=== PATIENT | male | born 1970 | race African-American/Black ===

== ENCOUNTER 2021-07-10 12:23 | Inpatient (IN) | payer OTHER, SELFPAY ==
[2021-07-10 12:23] VITALS: BMI 26.3
[2021-07-10 14:43] VITALS: BP 157/78; PULSE 84; RESP 20; TEMP 36.9; O2SAT 98
[2021-07-10 20:14] VITALS: BP 115/70; PULSE 60; RESP 16; TEMP 37; O2SAT 97
[2021-07-11 06:00] VITALS: BP 118/60; PULSE 58; RESP 16; TEMP 36.8; O2SAT 98
[2021-07-11] MEDS: carvedilol 6.25 mg Tablet PO ×2 (08:40→17:25)
[2021-07-11] MEDS: aspirin 81 mg EC Tablet PO (08:40)
[2021-07-11] MEDS: clopidogrel 75 mg Tablet PO (08:40)
[2021-07-11] MEDS: lisinopril 20 mg Tablet 40 MG PO (08:41)
--- NOTE | 2021-07-11 10:36 | P.NPUHP_ITS ---
Providers/Chief Complaint Admitting Physician: Harvey Fritz MD HPI NPU History of Present Illness Aston Kaminski is a 50 year old male who is admitted through an outside emergency department with the following report: Patient is a 50-year-old male with a past history of coronary artery disease, depression, hypertension, hyperlipidemia presents to the emergency department with suicidal ideation.? Patient was here earlier today for chest pain and was cleared for discharge however upon leaving he states that he has been having perseverating suicidal thoughts.? He states that he is concerned that if he goes home he will do something to hurt himself.? He has been off his antidepressants recently due to not having a refill.? He recently moved to [place] from [place].? He states that he has multiple suicide attempts in the past by overdose on his hypertension medications and drinking bleach.? He no longer is having any chest pain.? He states that he has otherwise been well.? He denies fever, chills, sweats, cough, sore throat, shortness of breath, nausea, vomiting, abdominal pain, diarrhea and dysuria. Affidavit patient presents with reports of suicidal ideation.? He states he does not feel safe at home at this time due to this.? He states he has been off his antidepressants due to running out.? He has attempted suicide multiple times in the past including drinking bleach and prescription overdose.? He does not have a specific plan at this time. He was admitted to the neuropsychiatry unit for definitive treatment of these issues. He said that he has been dealing with depression and suicidal ideation on and off for the last 14 years. 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 He says that he has not been using any cocaine for the last year. He was hospitalized last year and started on Zoloft 50 mg daily which he took in the morning. He said that helped significantly and he took it for about 6 months. He says it was very beneficial for his depression. He said he started working within 1 or 2 days. He said that he stopped seeing that psychiatrist and stopped taking the Zoloft. He has been more depressed since then. 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 Yesterday he took a hit off of another person's marijuana blunt and immediately flipped out. He says he thinks there must have been something in it. His urine was positive for cannabis and cocaine. He says that usually takes about 3 days for something like that to get out of his system and he expects that he will be much better tomorrow. He requested starting back on Zoloft. He is not sure what dose but does not think that it was very much. PAST PSYCHIATRIC HISTORY As above SOCIAL HISTORY As above Meds NPU Home Medications Medication Instructions Recorded Confirmed Last Taken Type aspirin 81 mg tablet,delayed 81 mg PO DAILY 07/10/21 07/10/21 Unknown History release carvedilol 6.25 mg tablet (Coreg) 6.25 mg PO BID 07/10/21 07/10/21 Unknown History clopidogrel 75 mg tablet 75 mg PO DAILY 07/10/21 07/10/21 Unknown History lisinopril 40 mg tablet 40 mg PO DAILY 07/10/21 07/10/21 Unknown History lovastatin 40 mg tablet 80 mg PO DAILY 07/10/21 07/10/21 Unknown History Allergies Allergy/AdvReac Type Severity Reaction Status Date / Time No Known Allergies Allergy Verified 07/10/21 12:56 Mental Status Exam MSE Comments: This is a mildly overweight 50-year old -[place] male who appears approximately his stated age and is in no acute distress. He is in bed and did not sit up to talk to me. He did uncover his head. Eye contact was poor. He is dressed in hospital scrubs. psychomotor activity is normal to mildly decreased Speech is at a regular rate and rhythm, normal volume, good articulation, not pressured. Alert, oriented X3 Attention and concentration appear to be normal. Memory is intact Mood is depressed. Affect is mildly dysphoric. Thought process is logical and goal-directed. Thought content: Denies auditory and visual hallucinations. No delusions or paranoia are noted. He reported suicidal ideation but denies in the hospital and no homicidal ideation. Fund of knowledge is average. Insight and judgment appear to be fairly good. Impulse control is probably fairly good when not on drugs Vitals/I&O/Wt Last Vital Signs Temp 98.2 F 07/11/21 06:00 Pulse 58 L 04/17/22 06:00 Resp 16 07/11/21 06:00 BP 118/60 07/11/21 06:00 Pulse Ox 98 07/11/21 06:00 Weight last 48 hrs Weight 92.986 kg A&P Assessment and plan (1) Major depressive disorder: Status: Acute (2) Cocaine abuse: Status: Acute (3) Suicidal ideation: Status: Acute Plan This is a 50-year-old black male who reports about 15 years of on and off depression but a previous good response to Zoloft. Plan: 1. We will restart Zoloft 50 mg and standard as needed medications. 2. Continue every 15 minute checks for safety. 3. Encourage individual, group and milieu therapies. 4. Encourage sober living treatment after discharge at the highest level of care to which he is willing to commit. 5. We will monitor for safety for himself in the community prior to discharge. Involuntary Hold Information 96 Hour Hold: 96 Hour Involuntary Admission: No Attestations NPU Medical Necessity Statement*: Inpatient hospitalization is medically necessary and the clinically appropriate intervention at this time. We will initiate medications and make changes as indicated. He will be in the hospital for over 2 midnights. Likely length of stay 4-6 days Coding Level of Care Code Acute [employer] for [facility] Diagnoses Major depressive disorder F32.9 Cocaine abuse F14.10 Suicidal ideation R45.851
[2021-07-11 14:00] VITALS: BP 117/66; PULSE 67; RESP 18; TEMP 36.6; O2SAT 97
[2021-07-11] MEDS: sertraline 50 mg Tablet PO (14:37)
[2021-07-11] MEDS: nicotine 2 mg Gum BUCCAL (21:25)
[2021-07-11 22:00] VITALS: BP 159/89; PULSE 63; RESP 16; TEMP 37.3; O2SAT 96
[2021-07-12 06:00] VITALS: BP 135/86; PULSE 69; RESP 16; TEMP 36.8; O2SAT 95
[2021-07-12] MEDS: clopidogrel 75 mg Tablet PO (09:45)
[2021-07-12] MEDS: aspirin 81 mg EC Tablet PO (09:45)
[2021-07-12] MEDS: sertraline 50 mg Tablet PO (09:46)
[2021-07-12] MEDS: nicotine 2 mg Gum BUCCAL ×2 (09:46→14:47)
[2021-07-12] MEDS: lisinopril 20 mg Tablet 40 MG PO (09:46)
[2021-07-12] MEDS: carvedilol 6.25 mg Tablet PO ×2 (09:46→17:33)
--- NOTE | 2021-07-12 11:51 | P.NPUPN_ITS ---
Subjective NPU Subjective: He says he is doing better. He still feels like the cocaine is in his system. He complains of a lot of back pain. He says he was up most of the day yesterday. He has been in bed when I have seen him. He was encouraged to be out of bed as much as possible. He says that he takes ibuprofen 600 mg as needed for back pain and that is helpful. He would like to take that now. Mental Status Exam MSE Comments: This is a mildly overweight 50-year old -[place] male who appears approximately his stated age and is in no acute distress. He is in bed and did not sit up to talk to me. He did uncover his head. Eye contact was better. He is dressed in hospital scrubs. psychomotor activity is normal to mildly decreased Speech is at a regular rate and rhythm, normal volume, good articulation, not pressured. Alert, oriented X3 Attention and concentration appear to be normal. Memory is intact Mood is depressed. Affect is mildly dysphoric. Thought process is logical and goal-directed. Thought content: Denies auditory and visual hallucinations. No delusions or paranoia are noted. He reported suicidal ideation but denies in the hospital and no homicidal ideation. Fund of knowledge is average. Insight and judgment appear to be fairly good. Impulse control is probably fairly good when not on drugs Cognition: Patient Appearance: Appropriate Ability to Follow Directions: Good Patient Orientation (long list): Person, Place, Name, Age and Birthday Comprehension Ability: Understands Concepts Hallucination Type: None Delusion Description: Not Present Thought Process: Circumstantial Affect: Affect Description: Appropriate and Calm Behavior: Patient Behavior: Appropriate and Cooperative Speech Pattern: Appropriate and Clear Vitals/I&O/Wt Last Vital Signs Temp 98.3 F 07/12/21 06:00 Pulse 69 07/12/21 06:00 Resp 16 07/12/21 06:00 BP 135/86 07/12/21 06:00 Pulse Ox 95 07/12/21 06:00 Weight last 48 hrs Weight 92.986 kg A&P Assessment and plan (1) Major depressive disorder: Status: Acute (2) Cocaine abuse: Status: Acute (3) Suicidal ideation: Status: Acute Plan This is a 50-year-old black male who reports about 15 years of on and off depres trever but a previous good response to Zoloft. Plan: 1. We will restart Zoloft 50 mg and standard as needed medications. 2. Continue every 15 minute checks for safety. 3. Encourage individual, group and milieu therapies. 4. Encourage sober living treatment after discharge at the highest level of care to which he is willing to commit. 5. We will monitor for safety for himself in the community prior to discharge. Involuntary Hold Information 96 Hour Hold: 96 Hour Involuntary Admission: No Attestations NPU Medical Necessity Statement*: Inpatient hospitalization is medically necessary and the clinically appropriate intervention at this time. We will initiate medications and make changes as indicated. Coding Level of Care Code Acute Non Destructive Testing Supervisor for [facility] Diagnoses Major depressive disorder F32.9 Cocaine abuse F14.10 Suicidal ideation R47.254
[2021-07-12 14:00] VITALS: BP 142/97; PULSE 62; RESP 18; TEMP 36.8; O2SAT 95
[2021-07-12] MEDS: ibuprofen 600 mg Tablet PO (17:33)
[2021-07-12 20:14] VITALS: BP 137/90; PULSE 59; RESP 17; TEMP 36.8; O2SAT 99
[2021-07-12] MEDS: trazodone 50 mg Tablet PO (21:13)
[2021-07-13 06:00] VITALS: BP 133/85; PULSE 72; RESP 16; TEMP 37.1; O2SAT 98
[2021-07-13] MEDS: lisinopril 20 mg Tablet 40 MG PO (09:49)
[2021-07-13] MEDS: aspirin 81 mg EC Tablet PO (09:50)
[2021-07-13] MEDS: clopidogrel 75 mg Tablet PO (09:50)
[2021-07-13] MEDS: sertraline 50 mg Tablet PO (09:50)
[2021-07-13] MEDS: carvedilol 6.25 mg Tablet PO (09:50)
--- NOTE | 2021-07-13 09:54 | W.PM.NPUDCS ---
Diagnoses at Discharge Discharge Diagnosis (1) Major depressive disorder: Status: Acute (2) Cocaine abuse: Status: Acute (3) Suicidal ideation: Status: Acute Reason for Visit Reason for Visit: Brief History: History of Present Illness Aston Kaminski is a 50 year old male who is admitted through an outside emergency department with the following report: Patient is a 50-year-old male with a past history of coronary artery disease, depression, hypertension, hyperlipidemia presents to the emergency department with suicidal ideation.? Patient was here earlier today for chest pain and was cleared for discharge however upon leaving he states that he has been having perseverating suicidal thoughts.? He states that he is concerned that if he goes home he will do something to hurt himself.? He has been off his antidepressants recently due to not having a refill.? He recently moved to [place] from [place].? He states that he has multiple suicide attempts in the past by overdose on his hypertension medications and drinking bleach.? He no longer is having any chest pain.? He states that he has otherwise been well.? He denies fever, chills, sweats, cough, sore throat, shortness of breath, nausea, vomiting, abdominal pain, diarrhea and dysuria. Affidavit patient presents with reports of suicidal ideation.? He states he does not feel safe at home at this time due to this.? He states he has been off his antidepressants due to running out.? He has attempted suicide multiple times in the past including drinking bleach and prescription overdose.? He does not have a specific plan at this time. He was admitted to the neuropsychiatry unit for definitive treatment of these issues.? He said that he has been dealing with depression and suicidal ideation on and off for the last 14 years.? 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 He says that he has not been using any cocaine for the last year.? He was hospitalized last year and started on Zoloft 50 mg daily which he took in the morning.? He said that helped significantly and he took it for about 6 months.? He says it was very beneficial for his depression.? He said he started working within 1 or 2 days.? He said that he stopped seeing that psychiatrist and stopped taking the Zoloft.? He has been more depressed since then.? 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 Yesterday he took a hit off of another person's marijuana blunt and immediately flipped out.? He says he thinks there must have been something in it.? His urine was positive for cannabis and cocaine.? He says that usually takes about 3 days for something like that to get out of his system and he expects that he will be much better tomorrow.? He requested starting back on Zoloft.? He is not sure what dose but does not think that it was very much. Hospital Course Hospital Course He slowly acclimated to the individual, group and milieu therapies provided. He was started on Zoloft 50 mg which he had said had helped him previously. He tolerated these doses and showed steady improvement during his stay. He was able to contract for safety outside hospital prior to discharge. During the hospitalization, patient had routine laboratory studies which were within normal limits except for few outliers. Additionally there was a general medical evaluation which was also within normal limits and revealed no new acute processes. Discharge Summary: At the time of discharge, lethality was denied and psychosis was resolving. Mood and anxiety were well managed. Patient endorsed a plan to follow-up with the aftercare recommendations of the treatment team. Patient was evaluated and deemed to be absent credible lethality, and had achieved the maximum benefit from an inpatient hospitalization, so was discharged. Involuntary Hold Information 96 Hour Hold: 96 Hour Involuntary Admission: No Mental Status Exam MSE Comments: This is a mildly overweight 50-year old -[place] male who appears approximately his stated age and is in no acute distress. He is in bed and did not sit up to talk to me. He did uncover his head. Eye contact was better. He is dressed in hospital scrubs. psychomotor activity is normal to mildly decreased Speech is at a regular rate and rhythm, normal volume, good articulation, not pressured. Alert, oriented X3 Attention and concentration appear to be normal. Memory is intact Mood is good. Affect is mildly dysphoric. Thought process is logical and goal-directed. Thought content: Denies auditory and visual hallucinations. No delusions or paranoia are noted. He reported suicidal ideation but denies in the hospital and no homicidal ideation. Fund of knowledge is average. Insight and judgment appear to be fairly good. Impulse control is probably fairly good when not on drugs Cognition: Patient Appearance: Appropriate Ability to Follow Directions: Good Patient Orientation (long list): Person, Place, Name, Age, Birthday, Month and Year Comprehension Ability: Understands Concepts Hallucination Type: None Delusion Description: Not Present Thought Process: Appropriate Affect: Affect Description: Appropriate and Calm Behavior: Patient Behavior: Appropriate and Cooperative Speech Pattern: Appropriate and Clear Discharge Data Vitals: Last Vital Signs Temp 98.8 F 07/13/21 06:00 Pulse 72 07/13/21 06:00 Resp 16 07/13/21 06:00 BP 133/85 07/13/21 06:00 Pulse Ox 98 07/13/21 06:00 Discharge Plan Discharge Patient Disposition: Home Condition: Stable Prescriptions: New sertraline 50 mg Tablet 50 mg PO DAILY 30 Days Qty: 30 1RF Continued clopidogrel 75 mg tablet 75 mg PO DAILY 0RF lisinopril 40 mg Tablet 40 mg PO DAILY 0RF Coreg 6.25 mg Tablet 6.25 mg PO BID 0RF Rx Instructions: must administer with a meal/food aspirin 81 mg Tablet,Delayed Release (Dr/Ec) 81 mg PO DAILY 0RF lovastatin 40 mg Tablet 80 mg PO DAILY 0RF Discharge Orders: Discharge Order (Routine); Ordered 07/13/21 Ordered By: Harvey Fritz Discharge Diet: Regular Discharge Activity: Resume usual activity Patient Instructions: Opioid Safety Discharge Attestations NPU Time Spent in Discharge Care*: less than 30 min Specific Discharge Activities: Specific discharge activities: educating patient, discussing with pillowcase sewer/social workers/dc planners, documenting/other paperwork and evaluating patient/reviewing data Coding Level of Care Code Acute [facility] DC note Diagnoses Major depressive disorder F32.9 Cocaine abuse F14.10 Suicidal ideation R45.85
[2021-07-13 10:15] VITALS: BP 133/85; PULSE 72; RESP 16; TEMP 37.1; O2SAT 98
== END 2021-07-13 11:33 | disposition home or self-care (01) | DRG 881 ==
PROVIDERS: Admitting Provider Psychiatry & Neurology Psychiatry; Visit Provider Psychiatry & Neurology Psychiatry
DX: F32.9 Major depressive disorder, single episode, unspecified (principal); R45.851 Suicidal ideations; I25.10 Atherosclerotic heart disease of native coronary artery without angina pectoris; I10 Essential (primary) hypertension; E78.5 Hyperlipidemia, unspecified; Z91.51 Personal history of suicidal behavior; Z91.128 Patient's intentional underdosing of medication regimen for other reason; F14.10 Cocaine abuse, uncomplicated; M54.9 Dorsalgia, unspecified; Z79.02 Long term (current) use of antithrombotics/antiplatelets; Z79.82 Long term (current) use of aspirin
CPT/HCPCS: 97165